=== PATIENT | female | born 1990 | race Caucasian/White ===

== ENCOUNTER 2025-08-22 07:39 | Observation (INO) ==
--- NOTE | 2025-08-21 11:30 | Anesthesiology Consultation ---
Date of Service August 21, 2025 Assessment & Plan (1) Encounter for pre-operative examination: Plan - check urine test STAT am DOS. - Per clerk stenographer on 08/21/25: No known infectious disease contacts, current infectious disease symptoms in past 10 days or COVID positive test result in the past 30 days. Chart Review Chart Review: Acceptable Risk for Surgery and Patient NOT seen in Pre Admission Testing History Surgery Operation Date: 08/22/25 08:15 Proposed Procedures p Total Laparoscopic Hysterectomy, Bilateral Salpingectomy and Cystoscopy, Possible Laparotomy and Any Indicated Procedure - Brian Meredith MD Height/Weight Height: 5 ft 5 in Weight: 80 kg Allergies Allergy/AdvReac Type Severity Reaction Status Date / Time buprenorphine [From Suboxone] Allergy Severe angioedema Verified 08/21/25 13:38 per [facility] naloxone [From Suboxone] Allergy Severe angioedema Verified 08/21/25 13:38 per [facility] Medications Home Medications Medication Instructions Recorded Confirmed Last Taken omeprazole 40 mg capsule,delayed 40 mg PO DAILY PRN reflux 08/21/25 08/21/25 Unknown release Past Medical History Medical History (Updated 08/21/25 @ 13:47 by Nicole Huizar RN) Allergic sinusitis Anxiety no medications, stable. GERD (gastroesophageal reflux disease) History of cervical dysplasia History of hemorrhage (~2009) 2 units of PRBCs Past Family History Family History (Updated 08/21/25 @ 13:47 by Nicole Huizar RN) Other No family history of adverse response to anesthesia Past Surgical History Surgical History History of arthroscopy of right knee History of bilateral tubal ligation History of colposcopy with LEEP History of dilatation and curettage (2009) s/p hemorrhage History of laparoscopic cholecystectomy History of laparoscopy Social History Smoking Status: Current some day smoker Do You Dip or Chew Tobacco: No Hx Alcohol Use: No Hx Substance Use: No Last Used Substance Other:: Pt denies per PAT RN call, h/o opioid dependence listed in [facility] E[facility] Testing Laboratory Results 08/14/25 WBC: 4.7 H&H: Plt: 347,000
[2025-08-22] MEDS: LACTATED RINGER'S 1,000 ML IV SCH (06:35)
[~2025-08-22 07:39] MED LIST: LIDOCAINE 2% 2 ML VIAL/AMP(20MG/ML) INFIL ONE; PROPOFOL IV EMULSION 10 MG/ML 20 ML VIAL IV ONE; Patient's HEIGHT &/or WEIGHT Needed SCH; ROCURONIUM BROMIDE 10 MG/ML 5 ML VIAL IV ONE
[2025-08-22] MEDS ORDERED: MIDAZOLAM HCL 1 MG/ML 2ML VIAL ONE (07:45)
[2025-08-22] MEDS: metroNIDAZOLE 500 MG/100 ML BAG IV SCH (08:28)
[2025-08-22] MEDS: LR 15ML/HR IV SCH (08:28)
[2025-08-22] MEDS ORDERED: ATROPINE SULFATE 0.1 MG/ML 10ML SYR IV PRN (09:16)
[2025-08-22] MEDS ORDERED: ONDANSETRON INJ 2 MG/ML 2 ML VIAL IV PRN ×2 (09:16→12:10)
[2025-08-22] MEDS: SCOPOLAMINE 1 MG/72 HR TDSY PATCH TD ONE ×2 (09:20→09:23)
--- NOTE | 2025-08-22 09:39 | History & Physical Bridge Note ---
Date of Service August 22, 2025 History & Physical Bridge Note I have examined the patient, reviewed the History & Physical and in the interval since the performance of the History & Physical I have noted the following changes of clinical significance: no changes noted
[2025-08-22] MEDS ORDERED: ACETAMINOPHEN 1000 MG/100 ML IV IV ONE (09:49)
[2025-08-22] MEDS ORDERED: KETAMINE HCL 10MG/ML SYR ONE (10:27)
[2025-08-22] MEDS ORDERED: LIDOCAINE 4% MPF LOCAL INJ 5 ML AMP ONE (10:27)
[2025-08-22] MEDS ORDERED: ONDANSETRON INJ 2 MG/ML 2 ML VIAL ONE (10:29)
[2025-08-22] MEDS ORDERED: DEXAMETHASONE SOD INJ 4 MG/ML VIAL ONE (10:29)
[2025-08-22] MEDS ORDERED: KETOROLAC 30 MG/ML VIAL ONE (10:54)
[2025-08-22] MEDS: METHYLENE BLUE 0.5% 10 ML VIAL ONE (11:17)
[2025-08-22] MEDS ORDERED: SUGAMMADEX SODIUM 200 MG/2 ML VIAL IV ONE (11:21)
[2025-08-22] MEDS ORDERED: HYDROmorphone INJ 2 MG/ML SYR/VIAL ONE (11:56)
[2025-08-22] MEDS: BUPIVACAINE/EPINEPHRINE 0.5% MPF 1:200,000 30 ML VIAL ONE (11:56)
[2025-08-22] MEDS ORDERED: SIMETHICONE 80 MG CHEW PO PRN (12:10)
[2025-08-22] MEDS ORDERED: MAGNESIUM HYDROXIDE SUSP 30 ML UDC PO PRN (12:10)
--- NOTE | 2025-08-22 12:21 | Operative Report ---
Post Operative Report Pre & Post Diagnosis Operation Date: 08/22/25 08:15 Pre-Op Diagnosis: Abnormal Uterine Bleeding Post-Op Diagnosis: Abnormal Uterine Bleeding I identified the patient and participated in the time-out.: Yes Procedure Operation Date: 08/22/25 08:15 Actual Procedures p Total Laparoscopic Hysterectomy,and Cystoscopy(Not Applicable) - Brian Meredith MD Surgeon Brian Meredith MD Electronics Teacher Taj ELIZALDE Estimated Blood Loss 5 Findings Consistent with Post-Op Diagnosis Normal female escutcheon no lesions in the vagina or vulva. Cervix appeared grossly normal. Hysteroscopic findings showed 8 weeks size uterus both fallopian tubes had been removed from previous surgery both ovaries appear grossly normal. There were no adhesions seen in the in the pelvics. Both ureters were identified appendix appeared grossly normal. Both ovaries appear grossly normal as well. Fluids IVF: 1300ml urine; 100ml EBL; 5ml Specimens 1. Uterus and cervix Drains None Anesthesia Type General Complications None Indications Menorrhagia Description of Procedure FINDINGS: DESCRIPTION OF PROCEDURE: The patient was prepped and draped in normal sterile fashion in the dorsal lithotomy position. Leon catheter was placed without difficulty. An [employer] uterine manipulator was placed in the uterus to help with colpotomy. Attention was paid to the abdominal part of the procedure where a supraumbilical incision was made and carried down to the fascia. Leon was used to grab the fascia. Veress needle was introduced into the abdomen at a 45-degree angle while tenting up the abdomen. Intra-abdominal placement was confirmed with a water-filled syringe. A water drop and suction test was performed. The abdomen was insufflated with CO2 gas. The Veress needle was removed and a 5 mm non bladed trocar was attached to a laparoscope was introduced into the abdomen under direct visualization. This was a non bladed trocar. Once inside the abdomen, laparoscope was repositioned. Inspection of the abdomen shows the findings as dictated above. Three more accessory ports were placed, two 5 mm accessory ports were placed in the lower abdomen on the contralateral side, in addition, an 11 mm trocar was placed on the left upper quadrant. General inspection of the abdomen and pelvis was performed as dictated above. Left and right fallopian tubes were absent from the previous surgery., the ureters, uterosacrals, bowels were examined and identified. LigaSure was passed through the left accessory port. The left round ligament is grasped with LigaSure and transected, followed by opening of the left anterior leaf of the broad ligament. This allowed for fenestration of the posterior left broad ligament. The mid-section of the left, utero-ovarian and meso-ovarian pedicles were transected as well. Same procedure was performed on the contralateral side. The anterior broad ligament dissection was carried to the mid-section of the vesicouterine peritoneum over the bladder using the Harmonic scalpel. Same procedure was carried out on the contralateral side. The posterior broad ligament peritoneum was carefully dissected also from both sides over the uterosacral arch in order to displace the ureters laterally. Using traction and countertraction, the Maryland retractor and irrigation probe was used to further dissect the bladder off the lower segment of the uterus. Bladder pillars and pubovesical fascia was dissected as well. Harmonic scalpel was used to obtain hemostasis where needed. Uterine manipulator was now palpable over the vaginal tissue. The right uterine pedicles were skeletonized and coagulated with the LigaSure. Good hemostasis was obtained. Same procedure was performed on the contralateral side. Cardinal ligaments were transected on both sides. Once good hemostasis was obtained, colpotomy was performed using the LigaSure hook from both sides. Uterus was removed through the vagina while still attached to the uterine manipulator. The bulb was attached to the uterine manipulator was reinserted into the vagina to establish pneumoperitoneum. EndoStitch closure device was passed through the 11 mm port on the left. Using the [place] grasper for traction, colpotomy closure was performed. The uterosacral ligaments incorporated into the closure in order to decrease the risk of prolapse. This is closed in 2 layers. Lapro ties were used with the EndoStitch. The 11-mm trocar site was closed with a Yobany-Sanders under direct visualization. Attention was paid to the cystoscopy part of the procedure where a cystoscope was introduced into the bladder. There are no sutures seen in the bladder. There were no gross blood seen in the bladder as well. The bubble sign is noted showing the bladder was a close cavity. Both ureters were seen and there was efflux from both uterus. The skin incisions are closed with Dermabond, except for the 11-mm trocar site, which was closed with 4-0 Monocryl. The patient was returned to recovery in stable condition. Inspection of the vagina shows the vaginal cuff was intact. All instruments were removed from the vagina and the bladder and accounted for x2. Electronics Teacher was necessary for retraction and manipulation of instruments in order to provide for a safe operationI attest to the content of the Intraoperative Record and any orders documented therein. Any exceptions are noted below.
--- NOTE | 2025-08-22 12:50 | Anesthesiology Progress Note ---
Date of Service August 22, 2025 Anesthesia Post Procedure Vital Signs Vital Signs: Temp Pulse Resp BP Pulse Ox O2 Del Method O2 Flow Rate 08/22/25 12:42 73 18 117/90 99 Room Air 08/22/25 12:32 75 18 124/93 100 Room Air 08/22/25 12:22 90 16 135/91 100 Oxymask 5 08/22/25 12:12 35.8 C L 90 20 126/84 100 Oxymask 7 08/22/25 07:57 36.7 C 70 18 127/90 100 Room Air Pain Intensity Abdomen: Pain Intensity: 8 Transfer of Care Handoff Completed per policy Notes Mental Status: alert / awake / arousable Patient Amnestic to Procedure: Yes Nausea / Vomiting: adequately controlled Pain: adequately controlled Airway Patency, RR, SpO2: stable & adequate BP & HR: stable & adequate Hydration State: stable & adequate Anesthetic Complications: no major complications apparent and Pt Satisfied with anesthetic care
[2025-08-22] MEDS: KETOROLAC 30 MG/ML VIAL IV PRN (13:52)
[2025-08-22] MEDS: CHECK SCOPOLAMINE PATCH PLACEMENT SCH (16:23)
[2025-08-22] MEDS: DOCUSATE SODIUM 100 MG CAP PO SCH (21:18)
[2025-08-23 08:06] LABS: Hematocrit (blood only) 33.5 % (37.0-47.0); Hemoglobin 11.1 g/dl (12.0-16.0); Immature Granulocytes # (auto) 0.03 K/uL (0.01-0.20); Immature Granulocytes % (auto) 0.3 %; Mean Corpuscular Hemoglobin 28.8 pg (25.0-34.0); Mean Corpuscular Volume 87.0 fL (80.0-100.0); Platelet Count 227 K/uL (130-400); RDW Standard Deviation 40.1 fL (36.4-46.3); Red Blood Count 3.85 M/uL (4.20-5.40); White Blood Count 11.21 K/ul (4.8-10.8)
[2025-08-23 08:22] LABS: Anion Gap 6.0 (3-11); Blood Urea Nitrogen 11.0 mg/dl (6-23); Calcium 8.5 mg/dl (8.6-10.3); Carbon Dioxide 26.0 mmol/L (21-32); Chloride 108.0 mmol/L (98-107); Creatinine Clr Calc Pharmacy 105.3 ml/min; Glucose 118.0 mg/dl (70-99(Fasting)); Potassium 3.7 mmol/L (3.5-5.1); Sodium 140.0 mmol/L (136-145)
[2025-08-23 08:26] VITALS: RESP 18; TEMP 97.9; O2SAT 96
--- NOTE | 2025-08-23 10:46 | Discharge Summary ---
Date of Service August 23, 2025 Admission HPI Per Admitting Provider Patient is a 35-year-old multiparous patient with menorrhagia failed medical treatment who underwent total laparoscopic hysterectomy and cystoscopy Details of surgeries in the operative record. Surgery was unremarkable. Patient was kept overnight for observation tolerating the pain food and medications well. This morning patient is being discharged home in stable condition. Discharge Data Procedures Performed Operation Date: 08/22/25 08:15 Actual Procedures p Total Laparoscopic Hysterectomy, Bilateral Salpingectomy and(Not Applicable) - Brian Meredith MD s Cystoscopy(Not Applicable) - Brian Meredith MD
--- NOTE | 2025-08-23 10:46 | Obstetrical Progress Note ---
Date of Service August 23, 2025 Assessment & Plan (1) Postop check: POD #1 Pt doing well d/c home with instrcutions Physical Exam Constitutional WD/WN, vitals as above Eyes PERRL, conjunctivae normal, anicteric sclerae ENMT external ear and nose normal, oropharynx normal Neck trachea midline, no thyromegaly Respiratory normal respiratory effort, lungs clear to auscultation Cardiovascular RRR, no murmur, no edema Chest (Breasts) normal inspection/palpation of breasts Gastrointestinal (Abdomen) normal bowel sounds, soft, nontender, no hepatosplenomegaly Musculoskeletal no cyanosis or clubbing, extremities motor strength 5/5 Skin + incision (Incision clean,dry and intact) Neurologic patellar DTR's 2+ bilat, sensation intact Psychiatric A+Ox3, euthymic affect Genitourinary no vaginal lesions, no adnexal mass Lymphatic no cervical or axillary lymphadenopathy Results & Data Vital Signs (Past 12 Hours) Vital Signs Temp Pulse Resp BP BP Pulse Ox O2 Del Method 08/23/25 07:30 Room Air 08/23/25 07:30 36.6 C 71 18 103/69 96 Room Air 08/23/25 04:14 36.7 C 71 16 100/61 97 Room Air 08/22/25 23:10 37 C 86 18 98/45 L 96 Room Air
[2025-08-23 11:23] VITALS: BP 100/61; PULSE 82
[2025-08-25] MEDS ORDERED: REMOVE TRANSDERM-SCOP PATCH ONE (06:00)
[2025-08-25] MEDS ORDERED: LACTATED RINGER'S 1,000 ML IV SCH (06:00)
== END 2025-08-23 12:30 | disposition home or self-care (01) ==
LOC: ASU 07:39 → 4E1 07:39